=== PATIENT | female | born 1945 | race Caucasian/White ===

== ENCOUNTER 2017-10-22 10:06 | Inpatient (IN) | payer OTHER ==
--- NOTE | 2017-10-22 10:18 | CPEKG ---
Heart Rate: 122 RR Interval: 492 P-R Interval: 128 QRSD Interval: 108 QT Interval: 324 QTC Interval: 462 P [place]: 61 QRS [place]: -87 T Wave [place]: -20 EKG Severity - ABNORMAL ECG - EKG Impression: SINUS TACHYCARDIA EKG Impression: IRBBB AND LPFB Electronically Signed By: Samm Mane 22-Oct-2017 10:50:27
[2017-10-22] MEDS ORDERED: NS 1,000 ML IV ONE (10:32)
[2017-10-22 10:37] LABS: PLATELET COUNT 561 10^3/uL (150-400)
[2017-10-22 10:46] LABS: INR 1.11 (0.83-1.16); PROTIME(PATIENT) 14.5 SEC (12.0-15.0)
--- NOTE | 2017-10-22 10:46 | EDPHY ---
H & P Stated Complaint: Sent by blunger for afib/flutter Time Seen by Provider: 10/22/17 10:17 HPI/ROS: CHIEF COMPLAINT: New AFib HISTORY OF PRESENT ILLNESS: Patient is a 72-year-old female who recently moved here from [place] with her daughter. The patient was hospitalized last month in [place] for pneumonia and pleural effusions. There was questions of CHF but it is not sure whether not this was diagnosed. She had bilateral thoracentesis and improved and returned home. Today she was following up with the cardiology office and Dr. Winters found her to be in new onset atrial fibrillation, weak and looking poor and bilateral rhonchi. She sent her here. Patient is now in sinus rhythm but is tachycardic. She states that she feels completely better than she did at the cardiology office. She has never been told before that she was in atrial fibrillation. She denies lightheadedness or dizziness but states that she does get weak when she tries to walk or when one of these episodes happens. REVIEW OF SYSTEMS: Constitutional: denies: chills, fever, recent illness, recent injury EENTM: denies: blurred vision, double vision, nose congestion Respiratory: denies: cough, shortness of breath Cardiac: See HPI denies: chest pain, irregular heart rate, lightheadedness, palpitations Gastrointestinal/Abdominal: denies: abdominal pain, diarrhea, nausea, vomiting, blood streaked stools Genitourinary: denies: dysuria, frequency, hematuria, pain Musculoskeletal: denies: joint pain, muscle pain Skin: denies: lesions, rash, jaundice, bruising Neurological: denies: headache, numbness, paresthesia, tingling, dizziness, weakness Hematologic/Lymphatic: denies: blood clots, easy bleeding, easy bruising Immunologic/allergic: denies: HIV/AIDS, transplant EXAM: GENERAL: Well-appearing, well-nourished and in no acute distress. HEAD: Atraumatic, normocephalic. EYES: Pupils equal round and reactive to light, extraocular movements intact, sclera anicteric, conjunctiva are normal. ENT: TMs normal, nares patent, oropharynx clear without exudates. Moist mucous membranes. NECK: Normal range of motion, supple without lymphadenopathy or JVD. LUNGS: Breath sounds clear to auscultation bilaterally and equal. No wheezes rales or rhonchi. HEART: Tachycardic but regular without murmurs, rubs or gallops. ABDOMEN: Soft, nontender, normoactive bowel sounds. No guarding, no rebound. No masses appreciated. BACK: No CVA tenderness, no spinal tenderness, step-offs or deformities EXTREMITIES: Normal range of motion, no pitting or edema. No clubbing or cyanosis. NEUROLOGICAL: Cranial nerves II through XII grossly intact. Normal speech, normal gait. 5/5 strength, normal movement in all extremities, normal sensation PSYCH: Normal mood, normal affect. SKIN: Warm, dry, normal turgor, no visible rashes or lesions. Source: Patient Exam Limitations: No limitations - Personal History Current Tetanus Diphtheria and Acellular Pertussis (TDAP): Yes - Medical/Surgical History Hx Asthma: No Hx Chronic Respiratory Disease: No Hx Diabetes: No Hx Cardiac Disease: No Hx Renal Disease: No Hx Cirrhosis: No Hx Alcoholism: No Hx HIV/AIDS: No Hx Splenectomy or Spleen Trauma: No Other PMH: Pneumonia 10/02/17. RA. - Family History Significant Family History: No pertinent family hx - Social History Smoking Status: Never smoked Alcohol Use: Sober Drug Use: None Constitutional: Initial Vital Signs Temperature (C) 36.6 C 10/22/17 10:07 Heart Rate 126 H 10/22/17 10:07 Blood Pressure 91/67 L 10/22/17 10:07 O2 Sat (%) 92 10/22/17 10:07 O2 Delivery Mode Room Air Allergies/Adverse Reactions: No Known Allergies Allergy (Unverified 10/22/17 10:10) Home Medications: Medication Instructions Recorded Folic Acid [Folic Acid 1 MG (*)] 1 mg PO DAILY 10/22/17 Methotrexate Sodium [Rheumatrex 17.5 mg PO TH 10/22/17 2.5 mg (RX)] Medical Decision Making - Diagnostics EKG Interpretation: An EKG obtained and was read and documented in trace view. Please see trace view for full reading and report. Sinus tachycardia, right bundle branch block , improved from previous Imaging: Discussed imaging studies w/ principal network architect Radiologist ED Course/Re-evaluation: I spoke with the patient and family about the plan. They are agreeable. The patient looks well now blood is still slightly tachycardic. It sounds as though she feels and looks horrible when she has an episode of her atrial fibrillation. She also has a medium pericardial effusion. I suggested echocardiogram to assess further. I spoke with Hospital Medicine who agrees to admit her to Dr. Martínez. Differential Diagnosis: Partial list of the Differential diagnosis considered include but were not limited to; pleural effusion, pericardial effusion, pneumonia and although unlikely based on the history and physical exam, I also considered acute coronary disease, CVA. - Data Points Laboratory Results: Laboratory Results 10/22/17 10:27 10/22/17 10:27 Medications Given: Enoxaparin Sodium (Lovenox) 60 mg SC BID [facility] Stop: 04/20/18 20:59 Last Admin: 10/23/17 11:13 Dose: 60 mg Folic Acid (Folic Acid) 1 mg PO DAILY [facility] Stop: 04/21/18 08:59 Last Admin: 10/23/17 11:14 Dose: 1 mg Metoprolol Tartrate (Lopressor) 12.5 mg PO BID [facility] Stop: 04/20/18 20:59 Last Admin: 10/22/17 20:47 Dose: Not Given Discontinued Medications Sodium Chloride (Ns) 1,000 mls @ 0 mls/hr IV EDNOW ONE; Wide Open PRN Reason: Protocol Stop: 10/22/17 10:33 Last Admin: 10/22/17 10:43 Dose: 1,000 mls Departure - Departure Disposition: [facility] Inpatient Acute Clinical Impression: Atrial fibrillation Qualifiers: Atrial fibrillation type: unspecified Qualified Code(s): I48.91 - Unspecified atrial fibrillation Condition: Fair
[2017-10-22] MEDS ORDERED: IOPAMIDOL (ISOVUE 370) 100 ML BTL IV ONE (11:25)
--- NOTE | 2017-10-22 15:55 | GHP ---
[f rep st] HISTORY AND PHYSICAL DATE OF ADMISSION: 10/22/2017 CHIEF COMPLAINT: Rapid atrial fibrillation and weakness. HISTORY OF PRESENT ILLNESS: This is a 72-year-old female, who was sent to the emergency department for evaluation after she was noted to be in rapid atrial fibrillation while being evaluated by Dr. Winters at [facility]. The patient recently traveled from [place] to be closer to her daughter. She was discharged from a hospital in [place] on 10/12/2017, where she was diagnosed with bilateral pleural effusions, as well as a pericardial effusion that was thought to be due to a pneumonia. She underwent a thoracentesis. Since arriving to [place], she has felt very weak. She has not had any chest pain but has had some dyspnea on exertion and shortness of breath. She does have some orthopnea. She denies any weight gain or swelling. She denies any joint pain. PAST MEDICAL HISTORY: 1. Recent hospitalization in [place] for pleural effusions status post thoracentesis. 2. Rheumatoid arthritis. On methotrexate. PAST SURGICAL HISTORY: Tonsillectomy and adenoidectomy in childhood. SOCIAL HISTORY: The patient recently arrived in [place] so her daughter can care for her. The patient drinks alcohol socially. No tobacco use. HOME MEDICATIONS: Reviewed. Refer to [facility] for details. ALLERGIES: No known drug allergies. FAMILY HISTORY: Father of heart attack at age 47. Sister also has heart disease. REVIEW OF SYSTEMS: Comprehensive 10-point review of systems was done and is negative, except for as mentioned in the HPI. PHYSICAL EXAM: VITAL SIGNS: Blood pressure 97/64, pulse 97, respiratory rate 20, O2 saturation 92% on room air. Temperature afebrile. GENERAL: No acute distress. HEAD: Normocephalic, atraumatic. EYES: PERRLA. Sclerae anicteric. MOUTH: Moist mucous membranes. NECK: Supple. No lymphadenopathy. CARDIOVASCULAR: S1, S2. No JVD. No lower extremity edema. PULMONARY: Bibasilar rales. No wheezes or rhonchi. No increased respiratory effort. ABDOMEN: Soft, nontender, nondistended. No guarding or rebound tenderness. Normoactive bowel sounds. EXTREMITIES: No clubbing or cyanosis. NEUROLOGIC: Cranial nerves 2-12 grossly intact. No focal motor or sensory deficits. SKIN: Clear. No rashes. MUSCULOSKELETAL: There is no obvious synovitis. DIAGNOSTICS: WBC is 8.88, hemoglobin 12.5, hematocrit 39.5, platelets 561. D- dimer is elevated at 5.98. Sodium 141, potassium 5.2, chloride 104, BUN 14, creatinine 0.6, glucose 118. BNP was elevated at 1050. Troponin was 0.013. Chest x-ray, which I visualized and personally interpreted, shows bilateral pleural effusions, some mild cardiomegaly. CT angio of the chest negative for PE. Small bilateral pleural effusions with bilateral lower lobe atelectasis a moderate pericardial effusion. EKG, which I visualized and personally interpreted, shows sinus tachycardia, rate 122 beats per minute. ASSESSMENT: This is a 72-year-old female with history of rheumatoid arthritis and recent hospitalization for bilateral pleural effusions, presenting with: 1. Newly diagnosed paroxysmal atrial fibrillation status post spontaneous cardioversion to sinus rhythm. 2. Suspect acute diastolic heart failure due to above. 3. History of rheumatoid arthritis with history of pericardial effusion. 4. Acute diastolic heart failure. 5. Mild anemia with microcytosis. PLAN: 1. Monitor on telemetry. 2. Check TSH. 3. Check inflammatory markers, given her history of rheumatoid arthritis. 4. Echocardiogram to further evaluate pericardial effusion. 5. Iron studies and further workup for anemia as indicated. 6. Cardiology consultation to discuss anticoagulation and further management of atrial fibrillation. 7. The patient will be placed on observation for now, pending further evaluation and workup. The patient has not had an ischemic workup which is probably reasonable, given her risk factors for coronary artery disease including rheumatoid arthritis and family history. 8. Start Eliquis and low dose metoprolol for AFIB /[id number]/MODL MTDD
--- NOTE | 2017-10-22 17:18 | PDCONSULT ---
Outside Rigger Note: Office note from Dr. Meredith Winters was reviewed CT scan with small pleural effusion and "moderate" pericardial effusion reviewed. Echocardiogram with "small" pericardial effusion (motion of the heart likely resulted in over estimation of the size of the pericardial effusion. Recent thoracentesis in [place], but no fluid cytology or results have been posted. Atrial fib with RVR was noted in the office, and agree with anticoagulation, but would use lovenox (1mg/kg) this evening in the off chance that further invasive testing is required tomorrow. Would start oxygen via nasal canula at 2 l/min Patient should have stress testing prior to discharge - uncertain etiology for the atrial fibrillation, and strong family history of CAD with premature CAD is noted. Would not attempt ETT with pAF and the sinus tachycardia currently noted.
--- NOTE | 2017-10-22 17:38 | ECHO ---
[email or web address] [address] [address] Main: [phone] Fax: [email or web address] Echocardiogram Name: LB RICHARDSON MR#: [id number] Study Date: 10/22/2017 Study Time: 03:58 PM Date of : 1945 Age: 72 year(s) Height: 157.5 cm (62 in.) Weight: 52.16 kg (115 lb.) BSA: 1.51 m2 Gender: Female Examination: Echo Indication: Image Quality: Adequate Contrast: Requested by: Nguyễn Martínez BP: 114 mmHg/59 mmHg Heart Rate: Rhythm: Indication: Procedure Staff Trapeze Artist: Lacey Villarreal [facility] Reading Physician: James Worley MD Requesting Provider: Conclusions: Normal size left ventricle. No LV hypertrophy. Normal global systolic LV function. The ejection fraction is visually estimated to be 60 %. Normal size right ventricle. The left atrium is normal in size. The right atrium is normal in size. There is no significant mitral valve regurgitation. The aortic valve is normal in appearance and function. There is no aortic valve regurgitation. The tricuspid valve is normal in appearance and function. Trivial pericardial effusion. There is a pleural effusion present. Measurements: Chambers Valvular Assessment AV/MV Valvular Assessment TV/PV Normal Normal Normal Name Value Range Name Value Range Name Value Range Ao Mey (2D): 2.7 cm (1.4 cm-2.6 AV meanP mmHg ( - ) PV Vmax: 0.73 m/s (0.6 m/s-0.9 cm) MIRANDA (VTI): 1.4 cm ( - ) m/s) IVSd (2D): 0.8 cm (0.6 cm-1.1 MV E Vmax: 0.80 m/s ( - ) PV PGmax: 2 mmHg ( - ) cm) MV A Vmax: 0.70 m/s ( - ) LVDd (2D): 3.9 cm (3.9 cm-5.3 MV E/A: 1.14 ( - ) cm) MV PHT: 0.045 s ( - ) LVDs (2D): 2.6 cm (2.1 cm-4 cm) MVA (PHT): 4.9 s ( - ) LVPWd (2D): 0.8 cm ( - ) LVOTd 1.7 cm 1.7 cm mm LVEF (BP): 69 % (>=55 %) Visual EF: 60 % Patient: LB RICHARDSON Study Date: 10/22/2017 Page 1 of 2 03:58 PM RVDd(2D): 2.5 cm (1.9 cm-3.8 cmmm) Continued Measurements: Chambers Valvular Assessment AV/MV Valvular Assessment TV/PV Name Value Name Value Name Value LADs: 3.1 cm MV DecTime: 137 m/s CVP (est.): 5 mmHg RA Area: 15.2 cm2 MV E' Septal: 0.06 m/s MV E/E' Septal: 12.90 MV E/E' Lateral: 10.70 Additional Vessels Name Value Ao Ascendin.4 cm Inferior Vena Cava: 1.3 cm Findings: Left Ventricle: Normal size left ventricle. No LV hypertrophy. Normal global systolic LV function. The ejection fraction is visually estimated to be 60 %. No regional wall motion abnormality. Normal diastolic LV function. Right Ventricle: Normal size right ventricle. Left Atrium: The left atrium is normal in size. Technically difficult visualization of LA. Right Atrium: The right atrium is normal in size. Mitral Valve: The mitral valve is normal in appearance and function. There is no significant mitral valve regurgitation. No mitral stenosis is present. Aortic Valve: The aortic valve is normal in appearance and function. There is no aortic valve regurgitation. No aortic valve stenosis is present. Tricuspid Valve: The tricuspid valve is normal in appearance and function. There is no significant tricuspid valve regurgitation. The pulmonary artery pressure is normal. Pulmonic Valve: The pulmonic valve is normal in appearance and function. There is no pulmonic regurgitation seen. Aorta: The aorta is normal. Normal size aortic root measuring 2.7 cm. Normal size ascending aorta measuring 2.4 cm. IVC: The IVC is normal sized. Pericardium: Trivial pericardial effusion. There is a pleural effusion present. Exam Comments: Limited apical windows. (No Signature Object) Patient: LB RICHARDSON Study Date: 10/22/2017 Page 2 of 2 03:58 PM [id number]
[2017-10-22] MEDS: ENOXAPARIN 60 MG/0.6 ML SYR SC SCH (20:47)
[2017-10-22] MEDS: METOPROLOL TARTRATE 25 MG TAB PO SCH (20:47)
[2017-10-22] MEDS ORDERED: APIXABAN 5 MG TAB PO SCH (21:00)
[2017-10-23 04:26] LABS: PLATELET COUNT 482 10^3/uL (150-400)
--- NOTE | 2017-10-23 08:46 | HOSPPROG ---
Hospitalist Progress Note Assessment/Plan: DIAGNOSES: -Tachycardia, sinus, ? etiology, suspect related to her inflammatory illness -Bilateral pleural effusions, ? etiology; these have recurred since recent bilateral thoracentesis ease about a week and half ago in [place] -Systemic inflammation indicated by sed rate 117 and CRP 195 -recent pericardial effusion found by echocardiogram is resolved -anemia, which appears to be most likely inflammatory in nature based on her clinical story and her lab results, though she is microcytic and does have a decreased iron saturation so that iron deficiency may need to be considered as part of the picture as well -RA is well controlled on her usual MTX with no joint symptoms I received and reviewed today medical records from hospital in [place] where the patient was last week. She had been admitted from October 07 to . This patient was recently hospitalized in [place] with a complaint of some dyspnea and a vague tight sensation in her chest. This significant abnormal findings at that time included bilateral pleural effusions which are described in the records have received as exudate of though I have no specific laboratory data. Cytology and cultures were negative. She did have some abnormal densities diffusely in both lung bases and it was unclear if these were infiltrative or atelectatic. She was treated with antibiotics but had really nothing in significant away of any fevers or cough. She was mildly hypoxic upon arrival there. She felt significantly better after thoracenteses were done. Records indicate that she had no significant remaining pleural fluid after her bilateral thoracentesis ease though there was some mention of some small amount of reaccumulated fluid on a follow-up chest x-ray. Notably as she arrived at the hospital there on October 07 she was noted to have a pericardial effusion. This was seen on echocardiogram although it was largely resolved spontaneously on a repeat echocardiogram a few days later there. According to the discharge summary note from the hospitalist, it sounds like the conclusion was that her illness may have been rheumatologic and possibly rate related to her rheumatoid arthritis. However this is not clearly substantiated and she did not receive any kind of anti-inflammatory medicine such as steroids or nonsteroidal medicines beyond her usual chronic doses of methotrexate for the rheumatoid arthritis. The patient tells me that she has been on the same dose of methotrexate for years and has had no joint symptoms at all for some years. She denies having had any skin lesions or other extra thoracic symptoms recently. Repeat echocardiogram here is normal. She has no evidence of PEs but she does have significant reaccumulation of bilateral pleural effusions at this time. On my review of her CT images she has significant collapse of lower lung segments that I think is probably atelectatic in etiology based on its appearance and her clinical story. Is unclear to me what the cause of her tachycardia, elevated inflammatory markers, and pleural effusions as well as recent pericardial effusions are. As she has had really no significant cough nor fevers nor chest pain or significant shortness of breath, I am disinclined to think that this is an infectious illness unless it is viral, particularly as she has had a pericardial effusion involved. Tuberculous disease could be considered but seems unlikely. Rheumatologic disease could be considered but the only rheumatologic illness she has is rheumatoid arthritis which is currently asymptomatic on her usual treatment, and there are no other acute symptoms at this time. PLANS: -infectious disease consultation and rheumatologic consultations are requested -will give a gentle hydration of IV fluids overnight but watch very carefully for worsening of her effusions -repeat inflammatory markers studies in the morning -will give some iron replacement therapy -she will potentially need GI assessment for cause of iron deficiency over time as well -I will attempt to get further records detailing lab test results from her pleural fluid from the hospital in [place] SUBJECTIVE: Patient feels better overall No shortness of breath, no cough, no febrile symptoms, no pain Ambulating okay OBJECTIVE Vitals reviewed: Remains with sinus tachycardia and evidence of orthostasis, otherwise no fever and stable vital signs 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, my review: Sinus tachycardia Exam: alert oriented skin warm dry color ok resps not labored lungs decreased breath sounds at both bases otherwise clear BSs heart regular abd soft nondistended nontender, bowel sounds present limbs warm, no edema iv site ok Laboratory data include sedimentation rate 117, CRP 195 Chemistries and CBC otherwise stable Her echocardiogram shows normal ejection fraction, normal valvular function and anatomy overall and no pericardial effusion Radiology: I have reviewed the images from her CT scan from yesterday which shows bilateral pleural effusions of moderate severity and severe atelectasis at both lung bases Objective: Vital Signs Temp Pulse Resp BP Pulse Ox 36.8 C 96 10 L 120/69 92 10/23/17 07:16 10/23/17 07:16 10/23/17 07:16 10/23/17 07:16 10/23/17 07:16 Laboratory Results 10/23/17 03:25 10/23/17 03:25 10/22/17 10/23/17 10/24/17 06:59 06:59 06:59 Intake Total 1750 Balance 1750 PT 14.5 SEC (12.0-15.0) 10/22/17 10:27 INR 1.11 (0.83-1.16) 10/22/17 10:27 - Time Spent With Patient Time Spent with Patient: greater than 35 minutes Time Spent with Patient: Greater than 35 minutes spent on this patients care, greater than 50% of time spent counseling, educating, and coordinating care regarding the above mentioned plan. ICD10 Worksheet Patient Problems: Problems Problem Status Onset Atrial fibrillation Acute
[2017-10-23] MEDS: METOPROLOL TARTRATE 25 MG TAB PO SCH (09:30)
--- NOTE | 2017-10-23 10:46 | PDCARPN ---
Cardiology Progress Note Chief Complaint: No cardiovascular complaints this morning. Heart rates continue to be elevated (95-100 bpm), but have remained in sinus/sinus tachycardia. Assessment/Plan: Assessment: Patient is a 72 y/o female with long standing history of Rheumatoid Arthritis ( seen by rheumatology in [place], her primary residence), with recent pneumonia and notable bilateral pleural effusions. This fluid was tapped in [place], and the patient then made her way to [place] to be with family. Full results of the fluid assessment (cytology in particular) has not been formally posted. In outpatient cardiology clinic yesterday (to establish cardiology following), the patient was noted to be in atrial fibrillation with rapid ventricular response. Given how she appeared and heart rates noted, recommendations were for patient to proceed to ER for likely admission. As the patient was being treated , her heart rates have reduced, and sinus rhythm/sinus tachycardia is now noted. Lovenox was dosed last night for CVA prophylaxis ([id number] score of 3 - if "CHF" is truly a diagnosis). Echocardiogram with trivial pericardial effusion and normal left ventricular systolic ejection fraction. D-dimer was elevated, but CT rule out PE was negative. Plan: (1) Heart rates remain elevated, but this is likely in response to a secondary cause (heart is responding other influences) (2) Would await full pericardial fluid report (cytology/gram stain/etc) (3) CVA prophylaxis should continue (lovenox while in patient, and Eliquis as outpatient) (4) Outpatient follow up with cardiology for ETT is recommended, but this is not indicated in the acute setting (5) Uncertain if the elevated set rate is trending down. Baseline for the patient is 30-40 (per her reports) (6) Ambulation today (7) Consider respiratory evaluation for home oxygen given the sats that have been noted while in house - ambulate patient with pulse oximetry. Subjective: No cardiovascular complaints Reviewed/Discussed With: family, hospitalist Objective: Vital Signs (8 Hrs) Temp Pulse Pulse Pulse Pulse Resp BP 10/23/17 09:04 110 H 112 H 102 H 10/23/17 07:16 36.8 C 96 10 L 120/69 10/23/17 03:35 36.7 C 102 H 18 102/61 BP BP BP Pulse Ox 10/23/17 09:04 100/72 94/64 L 121/67 H 10/23/17 07:16 92 10/23/17 03:35 96 Intake/Output (24 Hrs) 10/22/17 10/23/17 10/24/17 05:59 05:59 05:59 Intake Total 1750 Balance 1750 Intake: Oral (ml) 750 IV Infused (ml) 1000 Other: Weight 53.932 kg Number of Voids Toilet 2 Result Diagrams: 10/23/17 03:25 10/23/17 03:25 Cardiac Labs: Cardiac Lab Results (72 Hrs) 10/23/17 10/22/17 03:25 17:53 Troponin I < 0.012 0.016 Telemetry: sinus tachycardia/sinus rhythm - Physical Exam Constitutional: WDWN, healthy appearing, no apparent distress Eyes: PERRL, EOMI Ears, Nose, Mouth, Throat: moist mucous membranes Cardiovascular: regular rate and rhythm (tachycardia), no murmurs, no rubs, jugular vein distention, pulses symmetric bilat Peripheral Pulses: 2+: dorsalis-pedis (R), dorsalis-pedis (L) Respiratory: no crackles, no wheezes, reduced air movement Gastrointestinal: normoactive bowel sounds, no tenderness Skin: no rashes, no edema Musculoskeletal: no muscular tenderness Neurologic: AAOx3, CN II-XII grossly intact Psychiatric: cooperative, interactive, following commands ICD10 Worksheet Patient Problems: Problems Problem Status Onset Atrial fibrillation Acute
[2017-10-23] MEDS: ENOXAPARIN 60 MG/0.6 ML SYR SC SCH (11:13)
[2017-10-23] MEDS: FOLIC ACID 1 MG TAB PO SCH (11:14)
[2017-10-23 12:12] LABS: PLATELET COUNT 493 10^3/uL (150-400)
[2017-10-23 12:38] LABS: CREATINE KINASE 34 IU/L (0-156)
--- NOTE | 2017-10-23 14:04 | ASMTCMCOM ---
CM Note CM Note Notes: 72yr old female recently moved from [place] to be closer to her daughter and staying with her at this time. She was admitted for new Afib. Patient just discharged from hospital in [place] 10/12/17 for bilat pleural effusions and pericardial effusion. Patient also has a Hx of RA. OT has evaluated and reports no OT HC needs. Date Signed: 10/23/2017 02:03 PM Electronically Signed By:Johana Arzola LCSW
[2017-10-23] MEDS ORDERED: NS 1,000 ML IV SCH (15:30)
[2017-10-24] MEDS: ENOXAPARIN 60 MG/0.6 ML SYR SC SCH ×4 (00:04→20:19)
[2017-10-24 04:37] LABS: PLATELET COUNT 472 10^3/uL (150-400)
--- NOTE | 2017-10-24 08:50 | CPEKG ---
Heart Rate: 182 RR Interval: 330 QRSD Interval: 120 QT Interval: 300 QTC Interval: 522 QRS Anthony: -79 T Wave Anthony: -13 EKG Severity - ABNORMAL ECG - EKG Impression: ATRIAL FIBRILLATION WITH RAPID V-RATE EKG Impression: RIGHT BUNDLE BRANCH BLOCK EKG Impression: ATRIAL FIBRILLATION IS NEW IN COMPARISON TO PRIOR Electronically Signed By: James Worley 24-Oct-2017 11:04:28
--- NOTE | 2017-10-24 08:57 | HOSPPROG ---
Hospitalist Progress Note Assessment/Plan: DIAGNOSES: -Tachycardia, sinus, ? etiology, suspect related to her inflammatory illness * Was beginning to improve overnight with some high IV hydration, although that has led some development of edema -recurrence of paroxysmal atrial fibrillation with very rapid rate in the 160s 170s today * Is on anticoagulation * Will need to resume rate control medications * Does have family history of heart disease -Bilateral pleural effusions, ? etiology; these have recurred since recent bilateral thoracentesis ease about a week and half ago in [place] * Suspect some type of autoimmune or similar cause but etiology uncertain at this time; currently her rheumatoid arthritis is in complete remission in terms of joints * Tests done from thoracentesis last week in [place] reportedly exudate of but did not have all the data from their lab yet * Cytology results from pleural fluid were negative last week -Systemic inflammation indicated by sed rate 117 and CRP 195 -recent pericardial effusion found by echocardiogram last week in [place] is resolved without treatment -anemia, which appears to be most likely inflammatory in nature based on her clinical story and her lab results, though she is microcytic and does have a decreased iron saturation so that iron deficiency may need to be considered as part of the picture as well -RA is well controlled on her usual MTX with no joint symptoms I examined the patient together today with Dr. Roly Scott and reviewed the case in detail with him and have reviewed her case also with Dr. Brant Canchola. At this time the cause of her inflammatory illness with pleural and pericardial effusions remains uncertain. I think this is probably not infectious but could not rule that out I have asked Dr. Canchola to see her to ensure that are not missing any evaluations we should be doing. I have post a call for Dr. Teryr who she knows from the past to do rheumatology consultation and if he is not available all have another garage supervisor come to see her. At this point she clearly needs rate control for AFib, and Dr. Scott is recommending that we at some point assess her coronaries as well with stress testing PLANS: -infectious disease consultation and rheumatologic consultations are requested -further diagnostic testing after ID and rheumatology consultations -stop IV hydration at this time -have added diltiazem drip and will add some beta-natalia as needed as well for rate control -continue anticoagulation -cardiac stress testing once her condition is stabilized sufficiently -will give some iron replacement therapy -she will potentially need GI assessment for cause of iron deficiency over time as well -I will attempt to get further records detailing lab test results from her pleural fluid from the hospital in [place] SUBJECTIVE: has developed increase in cough this am, and has returned to rapid a fib this am Continues to feel fairly weak no other new sxs OBJECTIVE Vitals reviewed: now w HR in 160s, irreg, stable BP and resp no fever Vascular Surgeon, my review: rapid a fib 160s with unchanged RBBB Exam: alert oriented skin warm dry color ok resps not labored lungs decreased breath sounds at both bases otherwise clear BSs heart regular abd soft nondistended nontender, bowel sounds present limbs warm, no edema iv site ok Laboratory data: Stable CBC and chemistry panel, microcytic anemia persists Slight decrease in sed rate to 95, CRP pending Her echocardiogram shows normal ejection fraction, normal valvular function and anatomy overall and no pericardial effusion Radiology: CXR done today, interpreted by me: Slight increase in left-sided pleural effusion, possible slight infiltrate at left lung base 12 lead ekg: rapid a fib 160s; RBBB and ST changes are unchanged from previous Objective: Vital Signs Temp Pulse Resp BP Pulse Ox 36.9 C 99 16 121/68 H 92 10/24/17 07:51 10/24/17 07:51 10/24/17 07:51 10/24/17 07:51 10/24/17 07:51 Microbiology 10/23/17 13:00 Respiratory Panel (PCR) - Final Nasal, Sinus - Swab No Organism Detected Laboratory Results 10/24/17 03:57 10/24/17 03:57 10/23/17 10/24/17 10/25/17 06:59 06:59 06:59 Intake Total 1750 1750 Balance 1750 1750 PT 14.5 SEC (12.0-15.0) 10/22/17 10:27 INR 1.11 (0.83-1.16) 10/22/17 10:27 - Time Spent With Patient Time Spent with Patient: greater than 35 minutes Time Spent with Patient: Greater than 35 minutes spent on this patients care, greater than 50% of time spent counseling, educating, and coordinating care regarding the above mentioned plan. ICD10 Worksheet Patient Problems: Problems Problem Status Onset Atrial fibrillation Acute
[2017-10-24] MEDS: DILTIAZEM 125 MG in D5W 125 ML IV SCH ×3 (09:07→17:07)
[2017-10-24] MEDS ORDERED: DILTIAZEM 25 MG/5 ML VIAL IVP ONE (09:30)
[2017-10-24] MEDS: FOLIC ACID 1 MG TAB PO SCH (09:38)
[2017-10-24] MEDS ORDERED: METOPROLOL TARTRATE 5 MG/5 ML INJ IVP ONE (11:26)
--- NOTE | 2017-10-24 13:00 | PDCARPN ---
Cardiology Progress Note Chief Complaint: No cardiovascular complaints at present, but overnight, the patient had another bout of atrial fibrillation with RVR Assessment/Plan: Assessment: 10-25-17 Patient is feeling well, but overnight, she revisited the atrial fibrillation with rapid ventricular response. Given history of RA, rheumatology has been called to see the patient in consultation. No cardiovascular complaints of chest pains or pressure have been appreciated. We had initially planned for outpatient ETT, but given the ongoing issues related to uncertain etiology for the atrial fibrillation, discussion about invasive left heart catheterization were brought up today/last night. Daughter was present in the room with the patient today. Heart rates on telemetry continue to be elevated at present ( 140 bpm). 10-24-17 Patient is a 72 y/o female with long standing history of Rheumatoid Arthritis ( seen by rheumatology in [place], her primary residence), with recent pneumonia and notable bilateral pleural effusions. This fluid was tapped in [place], and the patient then made her way to [place] to be with family. Full results of the fluid assessment (cytology in particular) has not been formally posted. In outpatient cardiology clinic yesterday (to establish cardiology following), the patient was noted to be in atrial fibrillation with rapid ventricular response. Given how she appeared and heart rates noted, recommendations were for patient to proceed to ER for likely admission. As the patient was being treated , her heart rates have reduced, and sinus rhythm/sinus tachycardia is now noted. Lovenox was dosed last night for CVA prophylaxis ([id number] score of 3 - if "CHF" is truly a diagnosis). Echocardiogram with trivial pericardial effusion and normal left ventricular systolic ejection fraction. D-dimer was elevated, but CT rule out PE was negative. Plan: (1) Would pursue invasive left heart catheterization at this point to further, and more completely rule out CAD as possible etiology for the atrial fibrillation that has been note (2) Lovenox should be given tonight, but should refrain from the morning dose of therapy (3) NPO after midnight tonight (4) Rheumatology consultation is pending (5) Further recommendations after testing has been completed. Subjective: No cardiovascular complaints, but acceleration of heart rate (atrial fibrillation) has been noted once again Objective: Vital Signs (8 Hrs) Temp Pulse Resp BP Pulse Ox 10/24/17 12:10 110 H 104/49 L 10/24/17 11:45 130 H 91/58 L 10/24/17 10:41 137 H 98/64 L 10/24/17 10:25 135 H 107/58 L 10/24/17 09:50 107/76 92 10/24/17 09:35 120 H 117/72 10/24/17 09:30 140 H 101/77 10/24/17 09:00 170 H 145/95 H 10/24/17 07:51 36.9 C 99 16 121/68 H 92 Intake/Output (24 Hrs) 10/23/17 10/24/17 10/25/17 05:59 05:59 05:59 Intake Total 1750 1750 Balance 1750 1750 Intake: Oral (ml) 750 1150 IV Infused (ml) 1000 600 Ns 1,000 ml @ 50 mls/hr 600 IV CONT ARIN Rx#: [id number] Other: Weight 53.932 kg Intake Quantity Yes Sufficient Number of Voids Toilet 2 2 Number of Stools Toilet 1 Result Diagrams: 10/24/17 03:57 10/24/17 03:57 Cardiac Labs: Cardiac Lab Results (72 Hrs) 10/23/17 10/22/17 03:25 17:53 Troponin I < 0.012 0.016 Telemetry: atrial fibrillation with RVR - Physical Exam Constitutional: WDWN, healthy appearing, no apparent distress Eyes: PERRL, EOMI Ears, Nose, Mouth, Throat: moist mucous membranes Cardiovascular: irregularly irregular (tachycardia), pulses symmetric bilat, No jugular vein distention Peripheral Pulses: 2+: dorsalis-pedis (R), dorsalis-pedis (L) Respiratory: clear to auscultate bilat, reduced air movement Gastrointestinal: normoactive bowel sounds Skin: no rashes, no edema Musculoskeletal: no muscular tenderness, no joint effusions Neurologic: AAOx3, CN II-XII grossly intact Psychiatric: cooperative, interactive, following commands ICD10 Worksheet Patient Problems: Problems Problem Status Onset Atrial fibrillation Acute
[2017-10-24] MEDS ORDERED: ACETAMINOPHEN 325 MG TAB PO PRN (13:06)
[2017-10-24] MEDS ORDERED: NITROGLYCERIN 0.4 MG BTL SL PRN (13:06)
[2017-10-24] MEDS ORDERED: TEMAZEPAM 15 MG CAP PO PRN (13:06)
[2017-10-24] MEDS ORDERED: NS 1,000 ML IV SCH (13:15)
--- NOTE | 2017-10-24 13:35 | PDMN ---
Medical Necessity Medical necessity: M505- afib A-1 day: uncontrolled rapid Afib, with undg. inflammatory illness with recurrent pleural effusions( increasing ) progressive LLL consolidation and persistent cardiomegaly without obvious failure ( CXR) persistent sinus tachycardia. ongoing med nec monitoring, eval and tx needed > 2 midnights change to INPT 10/24/17 @ 13:19
--- NOTE | 2017-10-24 15:20 | GCON ---
[f rep st] CONSULTATION REFERRING PHYSICIAN: Elio Lauren MD REASON FOR REFERRAL: Bilateral pleural effusions, exudative. HISTORY OF PRESENT ILLNESS: Patient is a 72-year-old female, who was admitted to [facility] on 10/22/2017. The patient was sent to the emergency department for evaluation after she was n oted to be in rapid atrial fibrillation while being evaluated by Dr. Bel Winters at [facility]. Norris bellamy is a resident of [place]. She has lived there for approximately 7 years. She was a resident [facility] before that. She has a long-standing diagnosis of rheumatoid arthritis, and this is manage d with weekly methotrexate. She has been stable on this regimen for years. Starting approximately a month ago, patient began to feel more fatigued and presented to urgent cares in [place] prior to a t rip to [facility], complaining of bronchial symptoms. She was given a course of azithromycin, which d id not significantly help. The patient went to [facility] for vacation and did not feel quite herself during that entire time. She returned and was hospitalized in [place] where she was noted to have b ilateral pleural effusions. These were sampled and tested and found to be exudative. She was discha rged home and ultimately returned to [place] with her daughter for further workup. Currently, the p atient denies any fevers or chills. She denies any gastrointestinal or genitourinary symptoms. She denies any joint pain. She states that her usual issues with rheumatoid arthritis had always been bernard int related. She denies any skin rash. She denies any dryness of the eyes or mouth. She denies als o being around any ill people recently. PAST MEDICAL HISTORY: Rheumatoid arthritis. PAST SURGICAL HISTORY: Status post tonsillectomy with adenoid removal, remote. ANTIBIOTICS: None currently. ALLERGIES: No known drug allergies. SOCIAL HISTORY: As above. No significant tobacco, alcohol, or drug use noted. FAMILY HISTORY: Reviewed, but noncontributory. REVIEW OF SYSTEMS: Other than that detailed above in the History of Present Illness, comprehensive 1 0-system review is negative. PHYSICAL EXAMINATION: VITAL SIGNS: Temperature maximum is 37.1, temperature current is 36.9, heart rate is 110, respiratory rate is 12 blood pressure is 104/49. GENERAL: The patient is a well-formed, older female in no acute distress. She is not toxic in appea paz. She is alert and oriented x3. She is pleasant in [facility]. HEENT: Normocephalic for age. Atraumatic. No scleral icterus. No oral lesion. No drainage from maulik ayon nares. Eyes: Lids and conjunctivae are within normal limits. Pupils are equal and round bilaterally. NECK: Supple. No meningismus. LUNGS: Clear to auscultation bilaterally with good effort. HEART: Tachycardic, irregular. No significant peripheral edema. SKIN: Warm and dry to the touch. No rash or lesion seen. MUSCULOSKELETAL: No muscle body tenderness is noted. Patient does have some ulnar deviation of the joints of the MCPs bilaterally. LABORATORY DATA: The patient has a CBC dated 10/24/2017 that shows a white blood cell count of 5.49 hemoglobin of 10.3, hematocrit of 32.7, and a platelet count of 472; differentials within normal limi ts. Serum chemistries on 10/24/2017 show sodium of 142, potassium of 4.5, chloride of 107, bicarbona te of 24, BUN of 5, and creatinine of 0.6. The patient has elevated ferritin to 317. Her C-reactive protein is elevated at 195.2. Her erythrocyte sedimentation rate was measured at 117 on admission. Today it is 91. MICROBIOLOGIC DATA: Patient has a respiratory viral PCR panel which is negative. ASSESSMENT: Systemic inflammatory presentation in patient with underlying rheumatoid arthritis. Airam sasm does not have the history consistent with infectious etiology for her complaints and laboratory findings. I suspect that her answers lie in the rheumatologic area. We had a long discussion with maulik ayon patient and her daughter regarding this conclusion. Dr. Rigo Terry is her former rheumatologi , and I believe he has been consulted on this case. Will contact Dr. Terry to discuss. PLAN: 1. No antibiotics for now. 2. Await Rheumatology consult. /[id number]/MODL
[2017-10-24] MEDS: predniSONE 20 MG TAB PO SCH (18:42)
[2017-10-25 08:01] LABS: PLATELET COUNT 545 10^3/uL (150-400)
[2017-10-25 08:12] LABS: INR 1.06 (0.83-1.16)
[2017-10-25] MEDS ORDERED: MIDAZOLAM 2 MG/2 ML VIAL ONE (09:09)
[2017-10-25] MEDS ORDERED: LIDOCAINE 1% 300 MG/30 ML SDV ONE (09:09)
[2017-10-25] MEDS ORDERED: IOPAMIDOL (ISOVUE-370) 150 ML BTL IV ONE (09:09)
[2017-10-25] MEDS ORDERED: fentaNYL 100 MCG/2 ML INJ ONE (09:09)
[2017-10-25] MEDS ORDERED: DIAZEPAM 5 MG TAB PO ONE (09:30)
[2017-10-25] MEDS ORDERED: ASPIRIN EC 325 MG TAB PO ONE (09:30)
[2017-10-25] MEDS ORDERED: diphenhydrAMINE 25 MG CAP PO ONE (09:30)
[2017-10-25] MEDS ORDERED: FAMOTIDINE 20 MG TAB PO ONE (09:30)
[2017-10-25] MEDS: diphenhydrAMINE 25 MG CAP PO ONE ×2 (09:31→10:29)
[2017-10-25] MEDS: DIAZEPAM 5 MG TAB PO ONE ×2 (09:31→10:29)
[2017-10-25] MEDS: FAMOTIDINE 20 MG TAB PO ONE ×2 (09:31→10:30)
[2017-10-25] MEDS: ASPIRIN EC 325 MG TAB PO ONE ×2 (09:31→10:29)
--- NOTE | 2017-10-25 09:47 | PDPROPOC ---
Sedation Plan of Care Sedation Plan of Care: vital signs stable, mental status noted, patient educated of risks, benefits, alternatives, patient can tolerate sedation ASA Classification: ASA 2 Planned drugs: fentanyl, midazolam Mallampati Score: Class 2 Mallampati Reference Image: Patient passed 3-3-2 rule?: Yes
--- NOTE | 2017-10-25 09:52 | PDCARPN ---
Cardiology Progress Note Chief Complaint: Patient is doing well this morning. Anxiety about pending angiography was heightened. Assessment/Plan: Assessment: 10-25-17 (date was off yesterday) Patient is doing well today. Mild to moderate anxiety about pending angiogram. We have decided to pursue this procedure given revisitation of the atrial fibrillation with rapid ventricular response AND the noted ST/T wave changes appreciate when this arrhythmia is noted. The initial plan had been to work toward resolution of that which led to the admission, with outpatient stress testing, but we have not ascertained the etiology of some of the symptoms noted. ID consultation yesterday with feeling that rheumatology (given RA history) is more likely than infectious. No sarah chest pains or pressure today. No PND or orthopnea. Strong family history of CAD without a complete ( invasive) cardiovascular work up. 10-24-17 Patient is feeling well, but overnight, she revisited the atrial fibrillation with rapid ventricular response. Given history of RA, rheumatology has been called to see the patient in consultation. No cardiovascular complaints of chest pains or pressure have been appreciated. We had initially planned for outpatient ETT, but given the ongoing issues related to uncertain etiology for the atrial fibrillation, discussion about invasive left heart catheterization were brought up today/last night. Daughter was present in the room with the patient today. Heart rates on telemetry continue to be elevated at present ( 140 bpm). 10-23-17 Patient is a 72 y/o female with long standing history of Rheumatoid Arthritis ( seen by rheumatology in [place], her primary residence), with recent pneumonia and notable bilateral pleural effusions. This fluid was tapped in [place], and the patient then made her way to [place] to be with family. Full results of the fluid assessment (cytology in particular) has not been formally posted. In outpatient cardiology clinic yesterday (to establish cardiology following), the patient was noted to be in atrial fibrillation with rapid ventricular response. Given how she appeared and heart rates noted, recommendations were for patient to proceed to ER for likely admission. As the patient was being treated , her heart rates have reduced, and sinus rhythm/sinus tachycardia is now noted. Lovenox was dosed last night for CVA prophylaxis ([id number] score of 3 - if "CHF" is truly a diagnosis). Echocardiogram with trivial pericardial effusion and normal left ventricular systolic ejection fraction. D-dimer was elevated, but CT rule out PE was negative. Plan: (1) Left heart cath today - risks and benefits discussed and consents have been signed (2) Would continue CCB therapy for assistance with rate control (3) Lovenox on hold (4) Rheum consult pending (5) Further recommendations after this testing has been completed. 10/25/17 09:52 Subjective: No cardiovascular complaints Reviewed/Discussed With: family, hospitalist Objective: Vital Signs (8 Hrs) Temp Pulse Resp BP Pulse Ox 10/25/17 07:13 36.3 C 97 16 105/66 93 10/25/17 04:00 36.4 C 86 18 105/62 95 Intake/Output (24 Hrs) 10/24/17 10/25/17 10/26/17 05:59 05:59 05:59 Intake Total 1750 500 Balance 1750 500 Intake: Oral (ml) 1150 500 IV Infused (ml) 600 Ns 1,000 ml @ 50 mls/hr 600 IV CONT ARIN Rx#: [id number] Other: Intake Quantity Yes Sufficient Number of Voids Toilet 2 1 Number of Stools Toilet 1 Result Diagrams: 10/25/17 07:39 10/25/17 07:39 Cardiac Labs: Cardiac Lab Results (72 Hrs) 10/23/17 10/22/17 03:25 17:53 Troponin I < 0.012 0.016 Telemetry: normal sinus rhythm (90-95 bpm) - Physical Exam Constitutional: WDWN, healthy appearing, no apparent distress Eyes: PERRL, EOMI Ears, Nose, Mouth, Throat: moist mucous membranes Cardiovascular: regular rate and rhythm, no murmurs, no rubs, no gallops, pulses symmetric bilat, No jugular vein distention Peripheral Pulses: 2+: dorsalis-pedis (R), dorsalis-pedis (L) Respiratory: clear to auscultate bilat, no crackles Gastrointestinal: normoactive bowel sounds, no tenderness Skin: no rashes, no edema Musculoskeletal: no muscular tenderness Neurologic: AAOx3, CN II-XII grossly intact Psychiatric: cooperative, interactive, following commands ICD10 Worksheet Patient Problems: Problems Problem Status Onset Atrial fibrillation Acute
[2017-10-25] MEDS: FOLIC ACID 1 MG TAB PO SCH (10:30)
--- NOTE | 2017-10-25 11:05 | PDDXCAT ---
Diagnostic Cath Note - . Date: 10/25/17 [employer] Worker: Meir Indication: Patient w angina/susp CAD, cannot be risk stratified by other means - Procedure Access: right groin Procedure: left heart catheterization, coronary angiography, left ventriculogram - Materials Left Heart Cath size: 6F Left Heart Cath materials: standard multipack (JL4, JR4, pigtail) - Findings-Left Heart Catheterization LM: short, large diameter vessel with trifurcation into the LAD, LCX, and a ramus. No luminal irregularities were noted. LAD: Medium diameter vessel. No luminal irregularities were noted. There was a principal diagonal, also without luminal irregularities noted. LCX: Small to medium diameter vessel. There was a smallish OM1 and large OM2/ OM3. Mid/distal LCX was rather small and diminuative. No luminal irregularities were noted. RCA: Large, dominant vessel with supply to the PDA. There was a small 20% mid vessel luminal irregularity noted. Ramus: Small vessel, which appears to have take off from the LAD (very rapid, near ostial take off). No luminal irregularities were noted. EDP: 17 mm Hg LVEF: 65% Wall motion: normal Complications: none Estimated blood loss: <50ml Closure method: manual pressure (not only was the patient's bifurcation high, but the access was also high.) Assessment: 72 y/o female with atrial fibrillation (new) and long standing issues with rheumatoid arthritis. No signficant luminal irregularities were noted. Normal left ventricular systolic ejection fraction was noted. Plan: Aggressive medical management. Would await further recommendations from Rheumatology. Intervention: none Patient Problems: Problems Problem Status Onset Atrial fibrillation Acute
[2017-10-25] MEDS ORDERED: ATROPINE SULFATE 1 MG/10 ML SYR ONE (11:16)
[2017-10-25] MEDS ORDERED: ONDANSETRON 4 MG/2 ML VIAL IVP PRN (13:17)
[2017-10-25] MEDS ORDERED: ATROPINE SULFATE 1 MG/10 ML SYR IVP PRN (13:17)
[2017-10-25] MEDS ORDERED: METHOTREXATE 2.5 MG TAB PO SCH (15:43)
[2017-10-25] MEDS: predniSONE 20 MG TAB PO SCH (16:14)
--- NOTE | 2017-10-25 17:42 | HOSPPROG ---
Hospitalist Progress Note Assessment/Plan: DIAGNOSES: -Tachycardia, sinus, ? etiology, suspect related to her inflammatory illness * Currently resolved -recurrence of paroxysmal atrial fibrillation with very rapid rate in the 160s 170s now currently spontaneously converted to sinus * Is on anticoagulation, switch now to Eliquis which she will take at home * Continue rate control now switching to oral diltiazem * Does have family history of heart disease -Bilateral pleural effusions and pericardial effusion (the latter now resolved) , ? etiology; these have recurred since recent bilateral thoracentesis ease about a week and half ago in [place] * Suspect some type of autoimmune or similar cause but etiology uncertain at this time; currently her rheumatoid arthritis is in complete remission in terms of joints * Tests done from thoracentesis last week in [place] reportedly exudate of but did not have all the data from their lab yet * Cytology results from pleural fluid were negative last week * Further serologic studies for autoimmune vasculitis diseases have been sent and are pending; these will need follow-up with Dr. Terry in outpatient clinic as they will not be back until after discharge * As per my discussion with Dr. Terry yesterday we have started her on 40 mg daily prednisone at this time -Systemic inflammation indicated by sed rate 117 and CRP 195 -anemia, which appears to be most likely inflammatory in nature based on her clinical story and her lab results, though she is microcytic and does have a decreased iron saturation so that iron deficiency may need to be considered as part of the picture as well -RA is well controlled on her usual MTX with no joint symptoms I visited the patient together today from my 2nd visit with Dr. James Worley. We reviewed her coronary angiography findings, specific plans for follow-up of all of her cardiac issues, anticoagulant recommendations, rate control recommendations, and further assessment for her immune illness. PLANS: -ongoing treatment cardiac and inflammatory illness as above -further serologic tests for autoimmune vasculitic illnesses are pending -will watch overnight to be sure that she has adequate control of rate if she has any more AFib, likely discharge tomorrow if all stable with that -outpatient follow-up later next week with Dr. Terry SUBJECTIVE: Feels notably better today with no dyspnea, the tightness around her chest has resolved, less cough No fever symptoms No pleuritic pain Has had her coronary angiography which looked good, no discomfort at her access site or other complications OBJECTIVE Vitals reviewed: Has gone back to sinus rhythm heart rate 80 knees, vital signs otherwise normal without fever Needle Control Cheniller, my review: Her AFib resolved with spontaneous conversion to sinus rhythm last night and she has been in sinus rhythm since then Exam: alert oriented looks much more relaxed overall today skin warm dry color ok; no rashes or concerning lesions of the skin resps not labored lungs some improvement in the decreased breath sounds at both bases though not resolved yet, otherwise clear BSs heart regular abd soft nondistended nontender, bowel sounds present limbs warm, no edema Joints continued to show no evidence of acute inflammatory process iv site ok Laboratory data: Her echocardiogram shows normal ejection fraction, normal valvular function and anatomy overall and no pericardial effusion Coronary angiography done today, I reviewed this study with Dr. James Worley. She has a single 20% luminal irregularity of the dominant RCA, all other vessels without evidence of atherosclerosis or other disease. Radiology: CXR done today, interpreted by me: Slight increase in left-sided pleural effusion, possible slight infiltrate at left lung base 12 lead ekg: Sinus rhythm Objective: Vital Signs Temp Pulse Resp BP Pulse Ox 36.3 C 87 20 96/54 L 96 10/25/17 15:00 10/25/17 15:00 10/25/17 14:03 10/25/17 15:00 10/25/17 15:00 Laboratory Results 10/25/17 07:39 10/25/17 07:39 10/24/17 10/25/17 10/26/17 06:59 06:59 06:59 Intake Total 1750 500 Balance 1750 500 PT 14.0 SEC (12.0-15.0) 10/25/17 07:39 INR 1.06 (0.83-1.16) 10/25/17 07:39 - Time Spent With Patient Time Spent with Patient: greater than 35 minutes Time Spent with Patient: Greater than 35 minutes spent on this patients care, greater than 50% of time spent counseling, educating, and coordinating care regarding the above mentioned plan. ICD10 Worksheet Patient Problems: Problems Problem Status Onset Atrial fibrillation Acute
[2017-10-25] MEDS: DILTIAZEM CD 180 MG CAP PO SCH (18:13)
[2017-10-25] MEDS: APIXABAN 5 MG TAB PO SCH (20:28)
[2017-10-25] MEDS ORDERED: ENOXAPARIN 60 MG/0.6 ML SYR SC SCH (21:00)
[2017-10-26] MEDS: DILTIAZEM CD 180 MG CAP PO SCH (08:41)
[2017-10-26] MEDS: FOLIC ACID 1 MG TAB PO SCH (08:41)
[2017-10-26] MEDS: APIXABAN 5 MG TAB PO SCH (08:41)
[2017-10-26] MEDS: predniSONE 20 MG TAB PO SCH (08:42)
--- NOTE | 2017-10-26 09:59 | PDCARPN ---
Cardiology Progress Note Chief Complaint: No cardiovascular complaints this morning, but anxiety about issues related to being in the hospital were evident today Assessment/Plan: Assessment: 10-26-17 No cardiovascular complaints today. Anxiety about the hospitalization in general was mentioned today. Heart rates are controlled this morning, but brief nasim of atrial fibrillation was noted again this morning. Angiogram yesterday with minimal RCA lesion (20%). Eliquis was started yesterday given the pAF that has been noted. Would continue CCB therapy for rate/rhythm control assistance. 10-25-17 (date was off yesterday) Patient is doing well today. Mild to moderate anxiety about pending angiogram. We have decided to pursue this procedure given revisitation of the atrial fibrillation with rapid ventricular response AND the noted ST/T wave changes appreciate when this arrhythmia is noted. The initial plan had been to work toward resolution of that which led to the admission, with outpatient stress testing, but we have not ascertained the etiology of some of the symptoms noted. ID consultation yesterday with feeling that rheumatology (given RA history) is more likely than infectious. No sarah chest pains or pressure today. No PND or orthopnea. Strong family history of CAD without a complete ( invasive) cardiovascular work up. 10-24-17 Patient is feeling well, but overnight, she revisited the atrial fibrillation with rapid ventricular response. Given history of RA, rheumatology has been called to see the patient in consultation. No cardiovascular complaints of chest pains or pressure have been appreciated. We had initially planned for outpatient ETT, but given the ongoing issues related to uncertain etiology for the atrial fibrillation, discussion about invasive left heart catheterization were brought up today/last night. Daughter was present in the room with the patient today. Heart rates on telemetry continue to be elevated at present ( 140 bpm). 10-23-17 Patient is a 72 y/o female with long standing history of Rheumatoid Arthritis ( seen by rheumatology in [place], her primary residence), with recent pneumonia and notable bilateral pleural effusions. This fluid was tapped in [place], and the patient then made her way to [place] to be with family. Full results of the fluid assessment (cytology in particular) has not been formally posted. In outpatient cardiology clinic yesterday (to establish cardiology following), the patient was noted to be in atrial fibrillation with rapid ventricular response. Given how she appeared and heart rates noted, recommendations were for patient to proceed to ER for likely admission. As the patient was being treated , her heart rates have reduced, and sinus rhythm/sinus tachycardia is now noted. Lovenox was dosed last night for CVA prophylaxis ([id number] score of 3 - if "CHF" is truly a diagnosis). Echocardiogram with trivial pericardial effusion and normal left ventricular systolic ejection fraction. D-dimer was elevated, but CT rule out PE was negative. Plan: (1) Eliquis should continue (2) CCB therapy should continue (3) Would have patient seen in the outpatient setting by cardiology in next 7- 10 days (4) Ambulation today prior to her discharge is recommended (5) Outpatient rheumatology consultation is pending (and send out labs have been obtained) Subjective: No cardiovascular complaints today. Reviewed/Discussed With: family, hospitalist Objective: Vital Signs (8 Hrs) Temp Pulse Resp BP Pulse Ox 10/26/17 07:58 36.3 C 77 17 103/56 L 93 10/26/17 04:00 36.4 C 78 16 121/67 H 93 Intake/Output (24 Hrs) 10/25/17 10/26/17 10/27/17 05:59 05:59 05:59 Intake Total 500 400 Balance 500 400 Intake: Oral (ml) 500 400 Other: Intake Quantity Yes Sufficient Number of Voids Toilet 1 1 1 Number of Stools Toilet 1 Result Diagrams: 10/25/17 07:39 10/25/17 07:39 Telemetry: normal sinus rhythm (85-90 bpm) - Physical Exam Constitutional: WDWN, healthy appearing, no apparent distress Eyes: PERRL, EOMI Ears, Nose, Mouth, Throat: moist mucous membranes Cardiovascular: regular rate and rhythm, no murmurs, no rubs Peripheral Pulses: 2+: dorsalis-pedis (R), dorsalis-pedis (L) Respiratory: clear to auscultate bilat, no crackles, reduced air movement Gastrointestinal: normoactive bowel sounds, no tenderness Skin: no edema Musculoskeletal: no muscular tenderness Neurologic: AAOx3, CN II-XII grossly intact Psychiatric: cooperative, interactive, following commands ICD10 Worksheet Patient Problems: Problems Problem Status Onset Atrial fibrillation Acute
[2017-10-26 12:29] VITALS: BP 119/64
--- NOTE | 2017-10-26 12:41 | PDDCSUM ---
Discharge Summary Discharge Summary: DISCHARGE DIAGNOSES: -bilateral pleural effusions, recent pericardial effusion, both suspected to be due to autoimmune or similar process -new onset paroxysmal atrial fibrillation with rapid ventricular rate -anemia of chronic disease -suspected iron deficiency -chronic rheumatoid arthritis, currently in remission on methotrexate CONSULTANTS: Dr. James Canchola PROCEDURES: CT scan of chest Echocardiogram Coronary angiography with no evidence of significant atherosclerosis HOSPITAL COURSE SUMMARY: This patient had recently been diagnosis bilateral pleural effusions and pericardial effusion a hospital in [place]. There was no final diagnosis arrived at, but cultures did not identify an infection, cytology from the pleural fluid was negative, and the fluid was felt to be exact date of. There is question of bladder amended been related to her rheumatoid arthritis. She had both hemithoraces tapped dry by ultrasound-guided thoracentesis there. She came here about a week later when she was found to have new onset of atrial fibrillation. On arrival here she had reaccumulation of bilateral pleural effusions, with some significant atelectasis in the lungs, but there was no pericardial fluid or pericarditis. The patient did not have fevers or pain. She was not really having dyspnea per se. There is a slight cough. She did have a mild anemia most consistent with anemia of chronic disease though she does have a mild microcytosis as well and could also have some iron deficiency. There is no evidence of pulmonary embolism or mass on CT scanning. The patient does have chronic rheumatoid arthritis but this is very quiescent on her chronic methotrexate dose with no inflammatory symptoms are exam findings. However notably her sedimentation rate was 117 and CRP 195. On reviewing her illness in detail is felt this was most likely an immune mediated illness of uncertain etiology. I reviewed this by telephone with Dr. Rigo Terry who knows the patient from past visits. He had recommended further serologic workup for immune illness in the studies are ordered and pending. While here the patient did developed 2 episodes of rapid atrial fibrillation. Her echocardiogram was really unremarkable. She had some EKG abnormalities so angiography was done and this did not show any concerning coronary abnormalities. She has not shown any signs of heart failure and no other signs of arrhythmias besides the AFib. She is started on rate control medicines and Eliquis at this time for her AFib. PENDING TEST RESULTS: YANCI, rheumatoid factor, vascular studies MEDICATION CHANGES: Addition of prednisone at 40 mg daily for 1 more week followed by 20 mg daily Addition of methotrexate and diltiazem for rate control and Eliquis for anticoagulation FOLLOW-UP PLAN: With Dr. Rigo Terry of Rheumatology in [address] James Worley within a month Greater than 35 minutes bedside and care coordination time today
== END 2017-10-26 13:49 | disposition home or self-care (01) | DRG 287 ==
LOC: OBSVTOIN 12:33 → F2W 15:14
PROVIDERS: ADMIT Family Medicine; ATTEND Internal Medicine
PROC: 4A023N7 Measurement of Cardiac Sampling and Pressure, Left Heart, Percutaneous Approach (ICD-10-PCS; principal; 2017-10-25)
PROC: B2151ZZ Fluoroscopy of Left Heart using Low Osmolar Contrast (ICD-10-PCS; principal; 2017-10-25)
PROC: B2111ZZ Fluoroscopy of Multiple Coronary Arteries using Low Osmolar Contrast (ICD-10-PCS; principal; 2017-10-25)
DX: I48.0 Paroxysmal atrial fibrillation (principal); D89.9 Disorder involving the immune mechanism, unspecified; J91.8 Pleural effusion in other conditions classified elsewhere; I31.3 Pericardial effusion (noninflammatory); M06.9 Rheumatoid arthritis, unspecified; D63.8 Anemia in other chronic diseases classified elsewhere
CPT/HCPCS: 83010-90; 83516-90; 83520-90; 97161-GP; 97165-GO; G0378; G8978-GP-CI; G8979-GP-CI; G8980-GP-CI; G8987-GO-CI; G8988-GO-CI; G8989-GO-CI; J0461; J1644; J1650; J2250; J3010; J7512; Q9967

== ENCOUNTER → 2017-11-01 | Outpatient (CLI) | payer OTHER | LOC: BMCIMAGING 11:57 | PROVIDERS: ATTEND Internal Medicine Rheumatology | DX: Z13.83 Encounter for screening for respiratory disorder NEC (principal) ==

== ENCOUNTER 2017-12-07 13:40 | Observation (INO) | payer OTHER ==
--- NOTE | 2017-12-07 14:15 | CPEKG ---
Heart Rate: 103 RR Interval: 583 P-R Interval: 152 QRSD Interval: 116 QT Interval: 352 QTC Interval: 461 P [place]: 59 QRS [place]: -62 T Wave [place]: 22 EKG Severity - ABNORMAL ECG - EKG Impression: SINUS TACHYCARDIA EKG Impression: IRBBB AND LPFB Electronically Signed By: Sang Guo 07-Dec-2017 15:39:07
--- NOTE | 2017-12-07 15:23 | EDPHY ---
H & P Time Seen by Provider: 12/07/17 14:39 HPI/ROS: Chief complaint. Abnormal EKG HPI. Patient is a 72-year-old female presents with cough for 1 week and tired. She thinks this related to allergies. She called her personnel officer who recommended going to urgent care for blood work and chest x-ray. Apparently they 1st did an EKG and the patient has abnormal EKG. Patient has no chest discomfort or shortness of breath. In September the patient was admitted for bilateral pleural effusions and pericardial effusion as well as new onset atrial fibrillation. She had a thoracentesis. She had a normal angiogram. The family says that since the patient has been off prednisone for her rheumatoid arthritis that her heart rate has been somewhat fast. Patient has no unusual leg pain or swelling. ROS Constitutional. no fever/chills, no weakness Eyes. no problems with vision ENT. no sore throat, no nasal drainage Cardiovascular. no chest pain Respiratory. Cough; no shortness of breath Abdominal. no abdominal pain, no nausea/vomiting, no diarrhea . no problems urinating MS. no calf pain/swelling, no neck/back pain, no joint pain Skin. no rash Lymph. no swollen glands Neuro. no headache, no dizziness, no difficulty walking or with speech Past Medical/Surgical History: Past medical history atrial fibrillation and rheumatoid arthritis Social History: Nonsmoker, no alcohol Smoking Status: Never smoked Physical Exam: General Appearance: Alert well-developed female mild distress vital signs show heart rate 110 and blood pressure 99/58 Eyes: Pupils equal and round no pallor or injection. ENT, Mouth: Mucous membranes are moist. Respiratory: There are no retractions, lungs are clear to auscultation. Cardiovascular: Regular rate and rhythm. Gastrointestinal: Abdomen is soft and nontender, no masses, bowel sounds normal. Neurological: Awake and alert, sensory and motor exams grossly normal. Skin: Warm and dry, no rashes. Musculoskeletal: Neck is supple nontender. Extremities symmetrical, full range of motion. Psychiatric: Patient is oriented X 3, there is no agitation. Constitutional: Initial Vital Signs Temperature (C) 37.3 C 12/07/17 13:55 Heart Rate 110 H 12/07/17 13:55 Respiratory Rate 16 12/07/17 13:55 Blood Pressure 99/58 L 12/07/17 13:55 O2 Sat (%) 95 12/07/17 13:55 O2 Delivery Mode Room Air Allergies/Adverse Reactions: No Known Allergies Allergy (Unverified 10/22/17 10:10) Home Medications: Medication Instructions Recorded Folic Acid [Folic Acid 1 MG (*)] 1 mg PO DAILY 10/22/17 Methotrexate Sodium [Rheumatrex] 17.5 mg PO TH 10/22/17 Apixaban [Eliquis] 5 mg PO BID #60 tab 10/26/17 Diltiazem Cd [Cardizem ER Q24hr] 180 mg PO DAILY #30 cap 10/26/17 Metoprolol Tartrate [Lopressor 25 12.5 mg PO BID #30 tab 10/26/17 mg (*)] Medical Decision Making - Diagnostics EKG Interpretation: EKG interpreted by me shows normal sinus rhythm with left axis deviation. There is a right bundle branch block and left posterior fascicular block. T- wave inversions in precordial leads. Rate 103 Unchanged other than rate from previous EKG in September 2017 Imaging Results: Imaging Impressions Chest X-Ray 12/07/17 15:32 Impression: 1. Cardiac enlargement suggests low-grade congestive failure without pulmonary edema. 2. Small left pleural effusion. 3. Left basilar opacity is probably atelectasis; clinical correlation to exclude pneumonia. Chest/Thorax CTA 12/07/17 17:34 Impression: 1. No evidence of pulmonary embolic disease. 2. Cardiac enlargement and findings suggestive of low grade congestive heart failure. 3. Left basilar opacity could reflect pneumonia, with clinical correlation suggested. 4. See above report for additional findings. Results called and discussed with Dr. Sang Guo on December 07, 2017 at 1825 hours. Chest x-ray shows no pneumonia. Trace left pleural effusion Echocardiogram shows small pericardial effusion. Nothing sizable. No tamponade. This is reviewed by me and discussed with Dr. Severino Pedraza CT angiogram shows no evidence of PE. She does however have bilateral pleural effusions. Possible pneumonia left base. Procedures: IV normal saline, monitor ED Course/Re-evaluation: Re-evaluation at 5:30 a.m.. Patient and I discussed imaging and lab results. We discussed elevated d dimer and recommendation for CT. Patient expresses understanding and agreement. Patient has persistent abnormal vital signs reflecting a persistent tachycardia with a rate of about 110. I recommended admission for this patient. She expresses understanding and agreement I consulted and discussed case Dr. Bishop, hospitalist, who agrees to the admission Differential Diagnosis: Likely a much of this is due to her autoimmune disease of rheumatoid arthritis. She has bilateral pleural effusions and small pericardial effusion. There is some concern about pneumonia as well. She has continued abnormal vital signs. No evidence for pulmonary embolus - Data Points Laboratory Results: Laboratory Results 12/07/17 14:10 12/07/17 14:10 12/07/17 12/07/17 12/07/17 14:12 14:10 14:10 WBC RBC Hgb Hct MCV MCH MCHC RDW Plt Count MPV Neut % (Auto) Lymph % (Auto) [place] % (Auto) Eos % (Auto) Baso % (Auto) Nucleat RBC Rel Count Absolute Neuts (auto) Absolute Lymphs (auto) Absolute Monos (auto) Absolute Eos (auto) Absolute Basos (auto) Absolute Nucleated RBC Immature Gran % Immature Gran # PT Cancelled INR Cancelled APTT Cancelled D-Dimer Sodium Potassium Chloride Carbon Dioxide Anion Gap BUN Creatinine Estimated GFR Glucose Calcium Total Bilirubin 0.6 mg/dL mg/dL (0.1-1.4) POC Troponin I 0.01 ng/mL ng/mL (0.00-0.08) NT-Pro-B Natriuret Pep 12/07/17 12/07/17 12/07/17 14:10 14:10 14:10 WBC 9.55 10^3/uL H 10^3/uL (3.80-9.50) RBC 4.54 10^6/uL 10^6/uL (4.18-5.33) Hgb 12.0 g/dL L g/dL (12.6-16.3) Hct 37.7 % L % (38.0-47.0) MCV 83.0 fL fL (81.5-99.8) MCH 26.4 pg L pg (27.9-34.1) MCHC 31.8 g/dL L g/dL (32.4-36.7) RDW 18.6 % H % (11.5-15.2) Plt Count 402 10^3/uL H 10^3/uL (150-400) MPV 9.3 fL fL (8.7-11.7) Neut % (Auto) 79.4 % H % (39.3-74.2) Lymph % (Auto) 13.7 % L % (15.0-45.0) [place] % (Auto) 5.7 % % (4.5-13.0) Eos % (Auto) 0.0 % L % (0.6-7.6) Baso % (Auto) 0.3 % % (0.3-1.7) Nucleat RBC Rel Count 0.0 % % (0.0-0.2) Absolute Neuts (auto) 7.58 10^3/uL H 10^3/uL (1.70-6.50) Absolute Lymphs (auto) 1.31 10^3/uL 10^3/uL (1.00-3.00) Absolute Monos (auto) 0.54 10^3/uL 10^3/uL (0.30-0.80) Absolute Eos (auto) 0.00 10^3/uL L 10^3/uL (0.03-0.40) Absolute Basos (auto) 0.03 10^3/uL 10^3/uL (0.02-0.10) Absolute Nucleated RBC 0.00 10^3/uL 10^3/uL (0-0.01) Immature Gran % 0.9 % % (0.0-1.1) Immature Gran # 0.09 10^3/uL 10^3/uL (0.00-0.10) PT 19.6 SEC H SEC (12.0-15.0) INR 1.65 H (0.83-1.16) APTT 41.3 SEC H SEC (23.0-38.0) D-Dimer 3.23 ug/mLFEU H ug/mLFEU (0.00-0.50) Sodium 137 mEq/L mEq/L (135-145) Potassium 4.2 mEq/L mEq/L (3.3-5.0) Chloride 103 mEq/L mEq/L (97-110) Carbon Dioxide 22 mEq/l mEq/l (22-31) Anion Gap 12 mEq/L mEq/L (8-16) BUN 12 mg/dL mg/dL (7-23) Creatinine 0.7 mg/dL mg/dL (0.6-1.0) Estimated GFR > 60 Glucose 103 mg/dL H mg/dL (70-100) Calcium 8.3 mg/dL L mg/dL (8.5-10.4) Total Bilirubin POC Troponin I NT-Pro-B Natriuret Pep 733 pg/mL H pg/mL (0-125) Medications Given: Discontinued Medications Sodium Chloride (Ns) 1,000 mls @ 0 mls/hr IV EDNOW ONE; Wide Open PRN Reason: Protocol Stop: 12/07/17 17:34 Last Admin: 12/07/17 18:06 Dose: 1,000 mls Point of Care Test Results: Chemistry 12/07/17 14:12 POC Troponin I 0.01 ng/mL ng/mL (0.00-0.08) Departure - Departure Disposition: [facility] Inpatient Acute Clinical Impression: Pleural effusion, Pericardial effusion Pneumonia Qualifiers: Pneumonia type: due to unspecified organism Laterality: left Lung location: lower lobe of lung Qualified Code(s): J18.1 - Lobar pneumonia, unspecified organism Condition: Fair
[2017-12-07 15:35] LABS: PLATELET COUNT 402 10^3/uL (150-400)
--- NOTE | 2017-12-07 16:39 | ECHO ---
[email or web address] [address] [address] Main: [phone] Fax: Transthoracic Echocardiogram Name: LB RICHARDSON MR#: [id number] Study Date: 12/07/2017 Study Time: 04:07 PM Date of : 1945 Age: 72 year(s) Height: 160 cm (63 in.) Weight: 53.52 kg (118 lb.) BSA: 1.55 m2 Gender: Female Examination: Echo Indication: Chest Pain Image Quality: Adequate Contrast: Requested by: Sang Guo BP: / Heart Rate: Rhythm: Indication: Chest Pain Procedure Staff Wait Staff: Lacey Villarreal [facility] Reading Physician: Navjot Pedraza MD Requesting Provider: Conclusions: Normal size left ventricle. Normal global systolic LV function. EF is 69 %. No regional wall motion abnormality. Mild mitral valve regurgitation is present. Trivial tricuspid valve regurgitation. The pulmonary artery pressure is normal. Small circumferential pericardial effusion. The effusion has the appearance of fibrin assess organization without evidence of hemodynamic compromise. Measurements: Chambers Valvular Assessment AV/MV Valvular Assessment TV/PV Normal Normal Normal Name Value Range Name Value Range Name Value Range Ao Mey (2D): 2.6 cm (1.4 cm-2.6 AV Vmax: 1.21 m/s (1 m/s-1.7 PV Vmax: 0.87 m/s (0.6 m/s-0.9 cm) m/s) m/s) IVSd (2D): 1.1 cm (0.6 cm-1.1 AV maxP mmHg ( - ) PV PGmax: 3 mmHg ( - ) cm) AV meanP mmHg ( - ) LVDd (2D): 3.4 cm (3.9 cm-5.3 LVOT Vmax: 0.84 m/s (0.7 m/s-1.1 cm) m/s) LVDs (2D): 2.2 cm (2.1 cm-4 MIRANDA (Vmax): 1.6 cm2 ( - ) cm) MIRANDA (VTI): 1.7 cm ( - ) LVPWd (2D): 1.0 cm ( - ) MV E Vmax: 0.69 m/s ( - ) LVOTd 1.7 cm 1.7 cm mm MV A Vmax: 0.62 m/s ( - ) LVEF (MOD4): 69 % (>=55 %) MV E/A: 1.11 ( - ) RVDd(2D): 2.5 cm (1.9 cm-3.8 MV PHT: 0.041 s ( - ) cmmm) MVA (PHT): 5.4 s ( - ) Continued Measurements: Patient: LB RICHARDSON Study Date: 12/07/2017 Page 1 of 2 04:07 PM Chambers Valvular Assessment AV/MV Valvular Assessment TV/PV Name Value Name Value Name Value LADs: 2.3 cm MV DecTime: 162 m/s CVP (est.): 5 mmHg LADs Lon.0 cm MV E/E' Septal: 8.80 LA Area: 18.5 cm2 MV E/E' Lateral: 9.00 RA Area: 16.4 cm2 Additional Vessels Name Value Ao Ascendin.5 cm Findings: Left Ventricle: Normal size left ventricle. No LV hypertrophy. Normal global systolic LV function. EF is 69 %. No regional wall motion abnormality. Unable to assess diastolic dysfunction. Right Ventricle: Normal size right ventricle. Normal RV function. Left Atrium: The left atrium is normal in size. Right Atrium: The right atrium is normal in size. Mitral Valve: The mitral valve is normal in appearance and function. Mild mitral valve regurgitation is present. No mitral stenosis is present. Aortic Valve: The aortic valve is tri-leaflet. There is no significant aortic valve regurgitation. No aortic valve stenosis is present. Tricuspid Valve: The tricuspid valve is normal in appearance and function. Trivial tricuspid valve regurgitation. The pulmonary artery pressure is normal. Pulmonic Valve: The pulmonic valve is normal in appearance and function. There is no pulmonic regurgitation seen. Aorta: The aorta is normal. Normal size aortic root measuring 2.6 cm. Normal size ascending aorta measuring 2.5 cm. IVC: The IVC is normal sized. Pericardium: No pericardial effusion. Small circumferential pericardial effusion. (No Signature Object) Patient: LB RICHARDSON Study Date: 12/07/2017 Page 2 of 2 04:07 PM [id number]
[2017-12-07] MEDS ORDERED: NS 1,000 ML IV ONE (17:33)
[2017-12-07] MEDS ORDERED: IOPAMIDOL (ISOVUE 370) 100 ML BTL IV ONE (17:39)
[2017-12-07 18:56] LABS: INR 1.65 (0.83-1.16); PROTIME(PATIENT) 19.6 SEC (12.0-15.0)
[2017-12-07] MEDS ORDERED: ONDANSETRON DISINTEGRATING 4 MG TAB PO PRN (19:03)
[2017-12-07] MEDS ORDERED: ONDANSETRON 4 MG/2 ML VIAL IVP PRN (19:03)
[2017-12-07] MEDS ORDERED: ACETAMINOPHEN 325 MG TAB PO PRN (19:03)
[2017-12-07] MEDS: METOPROLOL TARTRATE 25 MG TAB PO SCH (21:34)
[2017-12-07] MEDS: APIXABAN 5 MG TAB PO SCH (21:35)
[2017-12-07] MEDS: predniSONE 20 MG TAB PO SCH (21:35)
--- NOTE | 2017-12-07 21:39 | GHP ---
[f rep st] HISTORY AND PHYSICAL DATE OF ADMISSION: 12/07/2017 CHIEF COMPLAINT: Tachycardia, fatigue. HPI: 72-year-old female with rheumatoid arthritis who was hospitalized September of this year with new o nset paroxysmal atrial fibrillation, bilateral pleural effusions, thought to be due to autoimmune dis ease. The patient lives in [place] and has been here for the past couple months. Prior to visiting her subhash ghter, she was found to have bilateral effusions and these were drained, was told that this was due t o pneumonia. During this last hospitalization she was treated for the rapid atrial fibrillation and not pneumonia. She is followed by Dr. Terry and has been recently tapered off her prednisone about a week and a half ago. Since that time, she has developed a dry cough. She complained of wrist clara n about a week ago. No joint effusions. No chest pain or shortness of breath. She had an episode o f diarrhea a couple days ago. No sputum production, nasal congestion. Per review of notes from Dr. Terry, recent evaluation for lupus and Sjogren's has been negative. In the emergency room, she had a CTA that was negative for pulmonary embolism; showed small bilateral effusions as well as a small pericardial effusion. Compared to CT in September the pericardial effusion is smaller. Radiology noted a left basilar opacity on today's scan. Daughter is very concerned as patient's heart rate has been greater than 100 since stopping the predn isone. REVIEW OF SYSTEMS: I completed a 10-point review of systems, negative except as noted in HPI. PAST MEDICAL HISTORY: 1. Rheumatoid arthritis. 2. Paroxysmal atrial fibrillation with history of RVR. 3. History of bilateral effusions. 4. Small pericardial effusion. SURGICAL HISTORY: None. SOCIAL HISTORY: Lives in [place] but has been here visiting her daughter for the past 2 months. Den ies alcohol, tobacco, or illicits. FAMILY HISTORY: Father with MD and diabetes. Mother with heart disease. ALLERGIES: No known drug allergies. HOME MEDICATIONS: Metoprolol 12.5 mg twice daily, methotrexate 17.5 mg on , folic acid, dil tiazem 180 mg daily, Eliquis 5 mg twice daily. PHYSICAL EXAMINATION: VITAL SIGNS: Temperature 36.7, blood pressure 106/52 to 121/67, heart rate is 100 to 1-teens, respirations 18, 93% on room air. GENERAL: Well-appearing female, no acute distres s. Does appear mildly fatigued. HEENT: PERRLA. Mildly dry mucous membranes. CV: Tachy, regular. No murmurs. LUNGS: Clear. Diminished at bases, but no crackles or wheezing. ABDOMEN: Soft, non tender, nondistended. Positive bowel sounds. : No [place]. MUSCULOSKELETAL: 5/5 upper and lower extremity strength. Has rheumatoid arthritic changes in her hands. She has no synovitis, joint pain or swelling. NEURO: 2 through 12 intact. PSYCHIATRIC: Alert and oriented x3. LABS: 1. WBC is 9, hemoglobin 12, hematocrit 37, platelets 402. D-dimer is 3.2. INR is 1.6, PT is 19.6. Lactate is 1.5. Sodium 137, potassium 4.2, chloride 103, carbon dioxide 22, anion gap 12, creatinin e 0.7, glucose 103, calcium 8.3, total bilirubin 0.6. Troponin 0.01. BNP is 773. Procalcitonin is pending. 2. Chest x-ray is personally reviewed by me. Mild blunting of the costophrenic angle. 3. Echocardiogram: Normal LV function. EF is 69%. No WMA. Small circumferential pericardial effu génesis. No evidence of tamponade. 4. CTA negative for pulmonary embolism, cardiac enlargement. Left basilar opacity. 5. EKG is personally reviewed by me. Sinus tachycardia, right bundle branch block, which was seen o n prior. ASSESSMENT AND PLAN: 1. Cough: Differential includes allergies versus pneumonia or viral etiology. She is afebrile. De nies a productive cough. There is a left lower lobe opacity, but given noninfectious symptoms, I agata l not treat with antibiotics. We will trial antihistamine. 2. Tachycardia: This is low grade. Has not been eating and drinking much today. Again, no acute s igns or symptoms of infection. She has a normal white count. Afebrile. Will monitor on telemetry. Her echocardiogram shows normal left ventricular function, mild effusion but no tamponade. 3. Paroxysmal atrial fibrillation: Resume metoprolol and Eliquis. 4. Rheumatoid arthritis: She is followed by Dr. Terry. She has recently been tapered off prednis one. It seems this constellation of symptoms including fatigue, tachycardia, intermittent wrist pain has occurred since being off prednisone. Suspect that the pleural and pericardial effusions are rel ated to her autoimmune disorder. She has recently been screened for lupus and Sjogren's, which were negative. I will dose prednisone 20 mg to see if improved symptoms. She is to follow up with Dr. Hernan moreno on Sunday. I did stress the concern of keeping her on chronic steroids if not necessary. Chec k ESR and CRP. 5. Diet: Regular. 6. Deep venous thrombosis prophylaxis on Eliquis. 7. Disposition: Observation admission for tachycardia requiring telemetry, IV fluids. Can likely d ischarge in the morning if clinically stable. /[id number]/MODL
[2017-12-08] MEDS: METOPROLOL TARTRATE 25 MG TAB PO SCH (07:55)
[2017-12-08] MEDS: APIXABAN 5 MG TAB PO SCH (07:55)
[2017-12-08] MEDS: predniSONE 20 MG TAB PO SCH (07:57)
[2017-12-08 08:47] VITALS: BP 85/58
[2017-12-08] MEDS ORDERED: FOLIC ACID 1 MG TAB PO SCH (09:00)
[2017-12-08] MEDS ORDERED: DILTIAZEM CD 180 MG CAP PO SCH (09:00)
--- NOTE | 2017-12-08 14:10 | ASMTLACE ---
LACE Length of stay for Answers: Less than 1 day current admission Acuity / Level of Answers: No Care: Did the patient have an inpatient admission? Comorbidities - select Answers: Other Notes: Paroxysmal afib with hx all that apply of RVR, rheumatoid arthritis # of Emergency department Answers: 1-2 visits in the last 6 months Score: 2 Date Signed: 12/08/2017 02:09 PM Electronically Signed By:Jenifer Yu RN
--- NOTE | 2017-12-08 14:16 | ASMTCMCOM ---
CM Note CM Note Notes: Pt admitted with a cough, tachycardia. History includes paroxysmal afib with RVR, rheumatoid arthritis, bilateral effusions, pericardial effusion. Pt was recently discharged from [facility] (September 2017). Pt lives in [place], but has been here visiting her two daughters. Per MD notes, pt to discharge home today with family support and no identified needs. Attempted to meet with pt to sign IM/OLIVERA, pt already discharged. No IM/Olivera signed. Pt to follow up as directed. CM available for any further issues or concerns. Discharge Plan: Home independently with family support Date Signed: 12/08/2017 02:16 PM Electronically Signed By:Jenifer Yu RN
--- NOTE | 2017-12-08 14:17 | ASDISCHSUM ---
Discharge Information Plan Status:Home with No Needs Medically Cleared to Leave: Discharge Date:12/08/2017 11:10 AM CM D/C Disposition:Home, Routine, Self-Care ADT D/C Disposition:Home, Routine, Self-Care Projected Discharge Date:12/08/2017 11:10 AM Transportation at D/C:Family Discharge Delay Reason: Follow-Up Date:12/08/2017 11:10 AM Discharge Slot:1 - 8:01 am - 12:00 noon Final Diagnosis:Cough, tachycardia, rheumatoid arthritis, paroxysmal afib with hx of RVR, hx of bila teral effusions, small pericardial effusion Placement Information Patient Contact Information Contact Name:JESSICA Relationship:Daughter Address:[address] Work Phone: City:[employer] [facility] Phone: [facility]/Zip Code:[place] [address] Email: Financial Information Financial Class:Medicare Advantage Plans Primary Plan Desc:[facility] [employer] Primary Plan Number:[id number] Secondary Plan Desc: Secondary Plan Number: Assessment Information LACE LACE Length of stay for Answers: Less than 1 day current admission Acuity / Level of Answers: No Care: Did the patient have an inpatient admission? Comorbidities - select Answers: Other Notes: Paroxysmal afib with hx all that apply of RVR, rheumatoid arthritis # of Emergency department Answers: 1-2 visits in the last 6 months Score: 2 Date Signed: 12/08/2017 02:09 PM Electronically Signed By:Jenifer Yu RN [facility] Progress Note CM Valerie CM Note Notes: Pt admitted with a cough, tachycardia. History includes paroxysmal afib with RVR, rheumatoid arthritis, bilateral effusions, pericardial effusion. Pt was recently discharged from [facility] (September 2017). Pt lives in [place], but has been here visiting her two daughters. Per MD notes, pt to discharge home today with family support and no identified needs. Attempted to meet with pt to sign IM/ESCUDERO, pt already discharged. No IM/Escudero signed. Pt to follow up as directed. CM available for any further issues or concerns. Discharge Plan: Home independently with family support Date Signed: 12/08/2017 02:16 PM Electronically Signed By:Jenifer Yu RN Intervention Information
--- NOTE | 2017-12-08 18:28 | GDS ---
[f rep st] DISCHARGE SUMMARY DISCHARGE DIAGNOSES: 1. Weakness, tachycardia, possible adrenal insufficiency, status post recent taper of prednisone. 2. Rheumatoid arthritis. 3. Atrial fibrillation. HISTORY: The patient is a 72-year-old female with a history of rheumatoid arthritis, on methotrexate . She recently received a prolonged course of prednisone and recently tapered off. After tapering o ff prednisone, she developed fatigue, tachycardia, wrist pain, as well as persistent small pleural an d pericardial effusions. Initially, there was concern of pneumonia, however, I do think that was rul ed out. She was restarted on prednisone 20 mg, and feels much better. Her tachycardia resolved. Sh e may have a relative adrenal insufficiency and may need a slower taper off prednisone. Her procalci tonin was negative. She will discharge on prednisone 20 mg, and follow up closely with Dr. Terry i n a couple of days to discuss further steroid management. Perhaps if reattempts to taper off could b e done at a slower rate of taper. DISCHARGE MEDICATIONS: Please see computerized record for full detailed list. New medications: Prednisone 20 mg p.o. daily. ADDITIONAL DISCHARGE INSTRUCTIONS: 1. Follow up with Dr. Terry for further instructions regarding steroid usage. Continue prednisone 20 mg daily until further instructions by Dr. Terry. 2. Consider slow prednisone taper. Patient was seen and examined by me on the day of discharge. /[id number]/MODL
[2017-12-13] MEDS ORDERED: METHOTREXATE 2.5 MG TAB PO SCH (20:27)
== END 2017-12-08 11:10 | disposition home or self-care (01) ==
LOC: F3E 21:06
PROVIDERS: ADMIT Internal Medicine; ATTEND Internal Medicine
DX: R00.0 Tachycardia, unspecified (principal); I48.0 Paroxysmal atrial fibrillation; M06.9 Rheumatoid arthritis, unspecified; J90 Pleural effusion, not elsewhere classified; R53.1 Weakness; R53.83 Other fatigue
CPT/HCPCS: 71046; 71275; 93005; 93306; G0378; J0696; J7512; Q9967; 84484-PO

== ENCOUNTER → 2017-12-21 | Outpatient (CLI) | payer OTHER | LOC: BMCIMAGING 11:19 | PROVIDERS: ATTEND Internal Medicine Rheumatology | DX: J40 Bronchitis, not specified as acute or chronic (principal); J90 Pleural effusion, not elsewhere classified ==

== ENCOUNTER → 2018-01-15 | Outpatient (CLI) | payer OTHER | LOC: BMCLAB 12:35 | PROVIDERS: ATTEND Internal Medicine Rheumatology | DX: R07.9 Chest pain, unspecified (principal); J90 Pleural effusion, not elsewhere classified; R91.8 Other nonspecific abnormal finding of lung field ==